=== PATIENT | male | born 2000 | race Caucasian/White ===

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

== ENCOUNTER 2018-03-17 21:36 | Emergency (ER) | payer OTHER ==
[2018-03-17 21:40] VITALS: BP 121/75; PULSE 92; TEMP 98.1; BMI 16.6
[2018-03-17] MEDS ORDERED: ALBUTEROL SO4 2.5/IPRATROPIUM 0.5 INH SOL 3 ML VIAL.NEB. NEB ONE ×2 (21:40→22:10)
--- NOTE | 2018-03-17 21:40 | PDOC ---
Rapid Medical Evaluation Chief Complaint: Cold Symptoms Time Seen by Provider: 03/17/18 21:38 Medical Evaluation: Allergies Allergy/AdvReac Type Severity Reaction Status Date / Time No Known Drug Allergies Allergy Verified 03/17/18 21:38 shellfish Allergy Severe Difficulty Uncoded 03/17/18 21:38 Breathing 03/17/18 21:38 I have performed a brief in-person evaluation of this patient. The patient presents with a chief complaint of productive coughing x 1 week with greenish phlegm Also reports shortness of breath and chest tightness with deep inhalation Pertinent physical exam findings: + bilateral expiratory wheezing and unlabored breathing heart [id number] I have ordered the following: neb treatment, chest xray The patient will proceed to the ED for further evaluation.
[2018-03-17] MEDS ORDERED: predniSONE 20 MG TABLET (UD) PO ONE (22:40)
--- NOTE | 2018-03-17 22:42 | PDOC ---
History of Present Illness - General Chief Complaint: Cold Symptoms Stated Complaint: COUGH Time Seen by Provider: 03/17/18 21:38 Past History - Past Medical History Allergies/Adverse Reactions: Allergies Allergy/AdvReac Type Severity Reaction Status Date / Time No Known Drug Allergies Allergy Verified 03/17/18 21:38 shellfish Allergy Severe Difficulty Uncoded 03/17/18 21:38 Breathing Home Medications: Ambulatory Orders Guaifenesin [Robitussin] 10 ml PO Q6H #200 ml 03/17/18 predniSONE [Deltasone -] 40 mg PO DAILY #8 tablet 03/17/18 Asthma: Yes Cardiac Disorders: Yes (Murmur from rheumatic fever 2005) COPD: No - Immunization History Immunization Up to Date: Yes - Suicide/Smoking/Psychosocial Hx Smoking History: Never smoked Have you smoked in the past 12 months: No Hx Alcohol Use: No Drug/Substance Use Hx: Yes ([facility]) Substance Use Type: None *Physical Exam - Vital Signs Last Vital Signs Temp Pulse Resp BP Pulse Ox 98.1 F 92 H 18 121/75 98 03/17/18 21:38 03/17/18 21:38 03/17/18 21:38 03/17/18 21:38 03/17/18 21:38 ED Treatment Course - Medications Given in the ED: ED Medications Discontinued Medications Generic Name Dose Route Start Last Admin Trade Name Lul PRN Reason Stop Dose Admin Albuterol/Ipratropium 1 amp 03/17/18 21:40 03/17/18 22:20 Duoneb - NEB 03/17/18 21:41 1 amp ONCE ONE Administration *DC/Admit/Observation/Transfer Diagnosis at time of Disposition: Asthma exacerbation Qualifiers: Asthma severity: mild Asthma persistence: intermittent Qualified Code(s): J45.21 - Mild intermittent asthma with (acute) exacerbation - Discharge Dispostion Disposition: HOME Condition at time of disposition: Stable Decision to Admit order: No - Referrals Referrals: Daniel Martinez MD [Staff Physician] - - Patient Instructions Printed Discharge Instructions: DI for Asthma -- Adult Additional Instructions: You have an asthma exacerbation. Please use the inhaler every 4 hours as needed for wheezing. Take the prednisone daily for the next 4 days. Follow-up instructions on the bottle. He may take the Robitussin every 6 hours as needed for cough or stuffy nose. Please follow up with her primary care doctor this week. Return to the emergency department if you have increased difficulty breathing, shortness of breath, lightheadedness, dizziness, or if you have any changes in your symptoms. - Post Discharge Activity Forms/Work/School Notes: Back to Work
[2018-03-17] MEDS ORDERED: predniSONE 20 MG TABLET (UD) ONE (22:43)
== END 2018-03-17 22:46 | disposition home or self-care (01) ==
LOC: JERFT 21:36
PROC: 3E0F7GC Introduction of Other Therapeutic Substance into Respiratory Tract, Via Natural or Artificial Opening (ICD-10-PCS; principal; 2018-03-17)
DX: J45.21 Mild intermittent asthma with (acute) exacerbation (principal)
CPT/HCPCS: 71046-TC-FY; 99281-25; J7620

== ENCOUNTER 2020-08-01 10:58 | Emergency (ER) | payer OTHER ==
[2020-08-01 11:06] VITALS: BP 112/69; PULSE 77; TEMP 97.9; BMI 16.6
--- OUTSIDE RECORDS SUMMARY | 2020-08-01 11:28 | XMS ---
:2000 Author Organization [facility] Support Name Relationship Address Phone [employer] [place] [address] EDVIN DENNEY MOTHER [address] [phone] [place] [address] Re-disclosure Warning The records that you are about to access may contain information from federally- assisted alcohol or drug abuse programs. If such information is present, then the following federally mandated warning applies: This information has been disclosed to you from records protected by federal confidentiality rules (42 CFR part 2). The federal rules prohibit you from making any further disclosure of this information unless further disclosure is expressly permitted by the written consent of the person to whom it pertains or as otherwise permitted by 42 CFR part 2. A general authorization for the release of medical or other information is NOT sufficient for this purpose. The Federal rules restrict any use of the information to criminally investigate or prosecute any alcohol or drug abuse patient.The records that you are about to access may contain highly sensitive health information, the redisclosure of which is protected by Article 27-F of the [facility] Public Health law. If you continue you may haveaccess to information: Regarding HIV / AIDS; Provided by facilities licensed or operated by the [facility] Office of Mental Health; or Provided by the [facility] Office for People With Developmental Disabilities. If such information is present, then the following [facility] mandated warning applies: This information has been disclosed to you from confidential records which are protected by state law. State law prohibits you from making any further disclosure of this information without the specific written consent of the person to whom it pertains, or as otherwise permitted by law. Any unauthorized further disclosure in violation of state law may result in a fine or care home sentence or both. A general authorization for the release of medical or other information is NOT sufficient authorization for further disclosure. Insurance Providers Payer name Policy type Policy ID Covered Covered democrat's Policy P aydin / Coverage democrat ID relationship to [place] [employer] ormation type peralta JONI [id number] [facility] CAP
--- NOTE | 2020-08-01 12:06 | PDOC ---
History of Present Illness - General Chief Complaint: Cold Symptoms Stated Complaint: COUGH Time Seen by Provider: 08/01/20 11:28 History Source: Patient Exam Limitations: Clinical Condition - History of Present Illness Initial Comments: 08/01/20 12:02 Patient with past medical history of asthma never intubated present with complaint of 2-day history of runny nose, dry cough, nasal congestion. Denies fever, chills, body aches, shortness of breath. Denies recent travel or sick contact. Patient has not taken anything for symptoms. Denies any other symptoms Is this a multiple visit Asthma Patient?: No Timing/Duration: other (2 days) Past History - Medical History Allergies/Adverse Reactions: Allergies Allergy/AdvReac Type Severity Reaction Status Date / Time No Known Drug Allergies Allergy Verified 08/01/20 11:01 shellfish Allergy Severe Difficulty Uncoded 08/01/20 11:01 Breathing Home Medications: Ambulatory Orders Guaifenesin [Robitussin] 10 ml PO Q6H #200 ml 03/17/18 predniSONE [Deltasone -] 40 mg PO DAILY #8 tablet 03/17/18 Benzonatate [Tessalon Pearls -] 100 mg PO Q8H PRN #20 capsule 08/01/20 Ipratropium Danese 2 spray NS BID PRN #1 spray 08/01/20 Methylprednisolone [Medrol Dose Shashank] 4 mg PO ASDIR #21 tablet 08/01/20 Asthma: Yes Cardiac Disorders: Yes (Murmur from rheumatic fever 2005) COPD: No - Immunization History Immunization Up to Date: Yes - Psycho-Social/Smoking History Smoking History: Current every day smoker Have you smoked in the past 12 months: No Number of Cigarettes Smoked Daily: 10 Information on smoking cessation initiated: Yes - Substance Abuse Hx (Audit-C & DAST Scrn) How often the patient has a drink containing alcohol: Monthly or less Number of drinks the patient has on a typical day: 1 or 2 How often the patient has six or more drinks on one occasion: Never Score: In Men: 4 or > Positive; In Women: 3 or > Positive: 1 Screen Result (Pos requires Nsg. Audit-10AR): Negative In the last yr the pt used illegal drug/Rx for NonMed reason: Yes Score: Yes response is considered Positive: 1 Screen Result (Positive result requires Nsg. DAST-10): Positive Review of Systems - Review of Systems Able to Perform ROS?: Yes Is the patient limited Bulgarian proficient: No Constitutional: No: Chills, Fever, Malaise HEENTM: Yes: Symptoms Reported, See HPI, Nose Congestion. No: Eye Pain, Blurred Vision, Tearing, Recent change in vision, Double Vision, Cataracts, Ear Pain, Oc ular Prothesis, Ear Discharge, Nose Pain, Tinnitus, Nose Bleeding, Hearing Loss, Throat Pain, Throat Swelling, Mouth Pain, Dental Problems, Difficulty Swallowing, Mouth Swelling, Other Respiratory: Yes: Symptoms reported, See HPI, Cough. No: Orthopnea, Shortness of Breath, SOB with Exertion, SOB at Rest, Stridor, Wheezing, Productive cough, Hemoptysis, Other Cardiac (ROS): No: Symptoms Reported, See HPI, Chest Pain, Edema, Irregular Heart Rate, Lightheadedness, Palpitations, Syncope, Chest Tightness, Other ABD/GI: No: Symptoms Reported, Nausea, Vomiting Integumentary: No: Symptoms Reported, Rash Neurological: No: Symptoms reported, Dizziness All Other Systems: Reviewed and Negative *Physical Exam - Vital Signs Last Vital Signs Temp Pulse Resp BP Pulse Ox 97.9 F 77 16 112/69 100 08/01/20 11:01 08/01/20 11:01 08/01/20 11:01 08/01/20 11:01 08/01/20 11:01 - Physical Exam 08/01/20 12:05 GENERAL: Well developed, well nourished. Awake and alert. No acute distress. HEENT: Normocephalic, atraumatic. PERRLA, EOMI. No conjunctival pallor. Sclera are non-icteric. Moist mucous membranes. Oropharynx is clear. NECK: Supple. Full ROM. CARDIOVASCULAR: Regular rate and rhythm. No murmurs, rubs, or gallops. PULMONARY: No evidence of respiratory distress. Mild expiratory wheeze bilateral. No rales or rhonchi. ABDOMINAL: Soft. Non-tender. Non-distended. No rebound or guarding. No organomegaly. Normoactive bowel sounds. MUSCULOSKELETAL Normal range of motion at all joints. SKIN: Warm and dry. Normal capillary refill. No rashes. No cyanosis. NEUROLOGICAL: Alert, awake, appropriate. Gait is normal without ataxia. PSYCHIATRIC: Cooperative. Good eye contact. Appropriate mood General Appearance: Yes: Nourished, Appropriately Dressed. No: Apparent Distress ED Treatment Course - RADIOLOGY Radiology Studies Ordered: Category Date Time Status CHEST PA & LAT [RAD] Stat Radiology 08/01/20 11:47 Ordered Medical Decision Making - Medical Decision Making 08/01/20 12:04 Patient with past medical history of asthma never intubated present with complaint of 2-day history of runny nose, dry cough, nasal congestion. Denies fever, chills, body aches, shortness of breath. Denies recent travel or sick contact. Patient has not taken anything for symptoms. Denies any other symptoms Exam significant for mild expiratory wheeze with no acute respiratory distress. Patient afebrile. Normal cardio exam. No abdominal tenderness. Symptoms likely viral URI versus less likely pneumonia. Chest x-ray ordered to rule out pneumonia. COVID tests ordered. Treat based on x-ray results 08/01/20 12:37 Checks x-ray shows no acute abnormality or pneumonia. Patient stable for discharge on Medrol pack for wheezing and Tessalon Perles for cough and Atrovent nasal spray for nasal congestion with advised to increase fluid intake with PCP follow-up Discharge - Discharge Information Problems reviewed: Yes Clinical Impression/Diagnosis: URI with cough and congestion Asthma exacerbation Qualifiers: Asthma severity: mild Asthma persistence: unspecified Qualified Code(s): J45.901 - Unspecified asthma with (acute) exacerbation Condition: Stable Disposition: HOME - Admission No - Additional Discharge Information Prescriptions: Ipratropium Danese 2 spray NS BID PRN #1 spray PRN Reason: nasal congestion Methylprednisolone [Medrol Dose Shashank] 4 mg PO ASDIR #21 tablet Benzonatate [Tessalon Pearls -] 100 mg PO Q8H PRN #20 capsule PRN Reason: Cough - Follow up/Referral Referrals: ON STAFF,NOT [Primary Care Provider] - - Patient Discharge Instructions Patient Printed Discharge Instructions: DI for Viral Upper Respiratory Infection -- Adult, [facility]-Coronavirus Instructions, [facility] COVID-19 Isolation Protocol Additional Instructions: Chest x-ray shows no pneumonia. Your symptoms likely caused by viral infection. Take prescribed medication as prescribed for cough and congestion. Increase fluid intake. Follow-up with your primary care - Post Discharge Activity
== END 2020-08-01 12:35 | disposition home or self-care (01) ==
LOC: JERFT 10:58
DX: R05 Cough (principal); J45.901 Unspecified asthma with (acute) exacerbation; J06.9 Acute upper respiratory infection, unspecified
CPT/HCPCS: 71046-TC-FY; 99284-25; C9803; U0003

== ENCOUNTER 2021-01-20 03:53 | Emergency (ER) | payer OTHER ==
[2021-01-20] MEDS ORDERED: ALBUTEROL SO4 2.5/IPRATROPIUM 0.5 INH SOL 3 ML VIAL.NEB. NEB ONE ×2 (04:00→04:07)
[2021-01-20 04:08] VITALS: BP 124/85; BMI 15.7
[2021-01-20] MEDS ORDERED: BENZOCAINE/MENTH/CETYLPYRD CL 1 EACH LOZENGE MM PRN (05:11)
[2021-01-20 05:46] VITALS: PULSE 91
[2021-01-20] MEDS ORDERED: DEXAMETHASONE 4 MG TABLET (FP) PO ONE (05:47)
== END 2021-01-20 05:52 | disposition home or self-care (01) ==
LOC: JER 03:53
PROC: 3E0F7GC Introduction of Other Therapeutic Substance into Respiratory Tract, Via Natural or Artificial Opening (ICD-10-PCS; principal; 2021-01-20)
DX: J45.901 Unspecified asthma with (acute) exacerbation (principal)
CPT/HCPCS: 71046-TC-FY; 99284-25; C9803; U0003; U0005

== ENCOUNTER 2021-06-10 20:44 | Emergency (ER) | payer OTHER ==
[2021-06-10 21:02] VITALS: BP 112/82; PULSE 90; TEMP 99; BMI 16.6
[2021-06-10] MEDS ORDERED: predniSONE 20 MG TABLET (UD) PO ONE (21:17)
[2021-06-10] MEDS ORDERED: predniSONE 20 MG TABLET (UD) ONE (21:17)
== END 2021-06-10 21:20 | disposition home or self-care (01) ==
LOC: JERFT 20:44
DX: J45.21 Mild intermittent asthma with (acute) exacerbation (principal); Z11.52 Encounter for screening for COVID-19
CPT/HCPCS: 99283-25; C9803; U0003; U0005

== ENCOUNTER 2022-02-27 04:28 | Emergency (ER) | payer OTHER ==
[2022-02-27 04:39] VITALS: TEMP 98; BMI 16.6
[2022-02-27] MEDS ORDERED: ALBUTEROL SO4 2.5/IPRATROPIUM 0.5 INH SOL 3 ML VIAL.NEB. NEB ONE ×2 (04:40→04:49)
[2022-02-27] MEDS ORDERED: DEXAMETHASONE SOD PHOSPHATE 10 MG/1 ML VIAL IM ONE (04:49)
[2022-02-27] MEDS ORDERED: DEXAMETHASONE SOD PHOSPHATE 10 MG/1 ML VIAL ONE (05:06)
[2022-02-27 05:42] VITALS: BP 126/70; PULSE 83
[2022-02-27 05:54] LABS: BASO % 0.9 % (0-2.0); EOS % 3.6 % (0-4.5); HEMATOCRIT 46.5 % (35.4-49); HEMOGLOBIN 15.9 GM/dL (11.7-16.9); LYMPH % 12.4 % (8-40); MCH 31.4 pg (25.7-33.7); MCHC 34.1 g/dl (32.0-35.9); MEAN CELL VOLUME 92.1 fl (80-96); MONO % 7.4 % (3.8-10.2); NEUT % 75.7 % (42.8-82.8); PLATELET COUNT 310 10^3/uL (134-434); RBC 5.05 M/mm3 (4.00-5.60); RDW 13.4 % (11.9-15.9); WHITE BLOOD COUNT 12.6 K/mm3 (4.0-10.0)
[2022-02-27 06:01] LABS: ALBUMIN 4.4 g/dl (3.4-5.0); BLOOD UREA NITROGEN 17.9 mg/dL (7-18); CALCIUM 9.5 mg/dL (8.5-10.1)
[2022-02-27 06:02] LABS: CREATININE 0.8 mg/dL (0.55-1.3)
[2022-02-27 06:03] LABS: BILIRUBIN,TOTAL 1.3 mg/dL (0.2-1); TOT PROT 7.3 g/dl (6.4-8.2)
== END 2022-02-27 06:52 | disposition left against medical advice (07) ==
LOC: JER 04:28
PROC: 3E023GC Introduction of Other Therapeutic Substance into Muscle, Percutaneous Approach (ICD-10-PCS; principal; 2022-02-27)
PROC: 3E0F7GC Introduction of Other Therapeutic Substance into Respiratory Tract, Via Natural or Artificial Opening (ICD-10-PCS; 2022-02-27)
DX: J45.901 Unspecified asthma with (acute) exacerbation (principal)
CPT/HCPCS: 36415; 71045-TC-FY; 80053; 84484; 85025; 93005; 93010; 99285-25; J1100